=== PATIENT | female | born 1970 | race Hispanic/Latino ===

== ENCOUNTER 2017-11-01 05:59 | Observation (INO) | payer MEDICARE, BC ==
[2017-10-31 09:13] LABS: BASOPHILS % 0.5 % (0.0-1.0); EOSINOPHILS # (AUTO) 0.3 (0.0-0.4); EOSINOPHILS % 3.4 % (0.0-6.0); HEMATOCRIT 41.4 % (34.2-44.1); HEMOGLOBIN 13.7 g/dL (12.0-16.0); LYMPHOCYTES # (AUTO) 3.3 (1.0-3.2); LYMPHOCYTES % 37.4 % (18.0-39.1); MEAN CORPUSCULAR HEMOGLOBIN 30.8 pg (28-32); MEAN CORPUSCULAR HGB CONC 33.1 g/dL (31-35); MONOCYTES # (AUTO) 0.7 (0.2-0.8); MONOCYTES % 7.9 % (4.4-11.3); NEUTROPHILS # (AUTO) 4.4 (2.1-6.9); NEUTROPHILS % 50.5 % (38.7-80.0); PLATELET COUNT 252 x10e3/uL (140-360); RED BLOOD COUNT 4.45 x10e6/uL (3.6-5.1); RED CELL DISTRIBUTION WIDTH 12.3 % (11.7-14.4)
[2017-10-31 09:28] LABS: ANION GAP 10.8 mmol/L (8-16); BLOOD UREA NITROGEN 12 mg/dL (7-26); BUN/CREATININE RATIO 17 (6-25); CALCIUM 9.1 mg/dL (8.4-10.2); CARBON DIOXIDE 26 mmol/L (22-29); CHLORIDE 106 mmol/L (98-107); EST GLOMERULAR FILTRATION RATE > 60 ML/MIN (60-); GLUCOSE 114 mg/dL (74-118); POTASSIUM 3.8 mmol/L (3.5-5.1); SODIUM 139 mmol/L (136-145)
[2017-10-31 09:34] LABS: INR 0.95; PROTHROMBIN TIME 13.1 seconds (11.9-14.5)
[2017-10-31 09:35] LABS: PARTIAL THROMBOPLASTIN TIME 30.2 seconds (23.8-35.5)
--- NOTE | 2017-10-31 09:48 | Diagnostic Imaging Report ---
PROCEDURE: X-RAY CHEST, TWO VIEWS COMPARISON: None. INDICATIONS: PREOP - CSPINE SX FINDINGS: LUNGS: No consolidations or edema. PLEURA: No effusions or pneumothorax. HEART \T\ MEDIASTINUM: The heart is within normal size-limits. BONES \T\ SOFT TISSUES: No acute findings. CONCLUSION: No acute thoracic abnormality. Scot Franklin D.O. Dictated by: Scot Franklin D.O. on 10/31/2017 at 9:56 Electronically approved by: Scot Franklin D.O. on 10/31/2017 at 9:56
[~2017-11-01] VITALS: Ht 152.4 cm; Wt 93.9 kg
[2017-11-01] VITALS (7 sets, daily range): BP systolic 135–168; BP diastolic 72–90
[2017-11-01] MEDS ORDERED: CEFAZOLIN SOD 2 GM/D5W 50ML 50 ML IV ONE (06:11)
[2017-11-01] MEDS ORDERED: BACITRACIN 50,000 UNIT VIAL ONE (07:02)
[2017-11-01] MEDS ORDERED: GELATIN SPONGE SZ 100 ONE (07:02)
[2017-11-01] MEDS ORDERED: THROMBIN FOR SOLN 5,000 UNIT VIAL ONE (07:02)
[2017-11-01] MEDS ORDERED: BUPIVACAINE HCL 0.5% INJ 30 ML VIAL INJ ONE (07:06)
[2017-11-01] MEDS ORDERED: ACETAMINOPHEN 325 MG TAB PO PRN (09:00)
[2017-11-01] MEDS ORDERED: MORPHINE SULFATE 5 MG/ML VIAL IM PRN (09:00)
[2017-11-01] MEDS ORDERED: PROMETHAZINE HCL (IM) 25 MG/ML VIAL IM PRN (09:00)
[2017-11-01] MEDS ORDERED: CEPACOL SORE THROAT LOZENGES PO PRN (09:00)
[2017-11-01] MEDS ORDERED: MAGNESIUM/ALUMINUM/SIMETHICONE 30 ML UDC PO PRN (09:00)
[2017-11-01] MEDS ORDERED: FENTANYL CITRATE/PF 100MCG/2 ML INJ ONE ×2 (09:08→19:11)
[2017-11-01] MEDS: LACTATED RINGER'S 1,000 ML IV SCH ×3 (10:22→19:51)
[2017-11-01] MEDS: OXYCODONE/ACETAMINOPHEN 5-325 1 EACH TABLET PO PRN ×2 (10:22→18:46)
[2017-11-01] MEDS: CARISOPRODOL 350 MG TAB PO PRN ×2 (10:22→18:47)
[2017-11-01] MEDS: ONDANSETRON HCL INJ 2 MG/ML VIAL IV PRN ×2 (12:29→19:05)
[2017-11-01] MEDS: CEFAZOLIN SOD 1 GM VIAL IV SCH ×2 (13:30→21:00)
[2017-11-01] MEDS: HYDROMORPHONE 2MG/ML INJ IV PRN ×2 (13:58→21:45)
[2017-11-01] MEDS ORDERED: CEFAZOLIN SOD 1 GM/NS 50ML 50 ML IV SCH (14:00)
[2017-11-01] MEDS ORDERED: IBUPROFEN 600 MG TAB PO PRN (14:30)
--- NOTE | 2017-11-01 15:34 | Operative Report ---
DATE OF PROCEDURE: November 01, 2017 PREOPERATIVE DIAGNOSIS: C5-6 disk herniation and spondylosis. POSTOPERATIVE DIAGNOSIS: C5-6 disk herniation and spondylosis. PROCEDURES 1. C5-6 anterior cervical diskectomy and microsurgical osteophyte resection and allograft fusion, 33350. 2. Preparation of MTF corticocancellous allograft, 35365. 3. C5-6 anterior cervical plating with Synthes ZPN plate, 68067. ANESTHESIA: General. INDICATIONS: The patient is a woman who presents with C5-6 disk herniation and spondylosis and was taken to the operating room for anterior cervical decompression and fusion. PROCEDURE: After induction of general anesthesia, the patient was placed on the operating table in supine position. The right side of the neck was prepped and draped in sterile fashion. The fluoroscopic C-arm was positioned in cross-table lateral orientation. A small transverse incision was created on the right side of the neck superimposed on the C5-6 disk space as determined by fluoroscopy. The platysma was divided in line with the incision. A subplatysmal dissection was carried out. An avascular plane of dissection was developed medially to the sternocleidomastoid muscle and was followed medial to the carotid sheath to the anterior border of the cervical spine. The deep cervical fascia was opened. The esophagus was retracted to the left. The attachments of the longus colli muscles to the anterolateral aspects of vertebral bodies of C5 and C6 were divided. The anterior longitudinal ligament was resected. Holden posts were inserted into the C5 and C6 vertebral bodies and the Holden distractor was used to distract the disk space. The anterior annulus of the disk was incised with a #11 blade and the contents of the C5-6 disk were thoroughly evacuated with angled curettes and pituitary rongeurs. As the posterior aspect of the disk was reached, hemorrhagic disk material came into view with a brownish purplish stain. This explained the hyperintense appearance of the herniated disk on MRI images. The herniated disk material was completely resected. The posterior osteophytes were drilled with a 2 mm cutting keith until they were completely removed. The residual posterior annulus of the disk and posterior longitudinal ligament were resected completely. The dura was fully exposed and decompressed. The medial aspects of the uncinate processes were resected bilaterally to expose the origins of the C6 nerve roots bilaterally. The endplates were prepared for fusion. The disk space was sized and found to be 7 mm in height. A piece of MTF corticocancellous allograft measuring 7 mm in thickness was selected and prepared in saline and loaded onto a Synthes ZPN plate. The construct was inserted into the disk space under lateral fluoroscopic guidance and tamped in place until the anterior margin of the plate was flush with the anterior margin of the vertebral bodies. The plate was then screwed to the endplates of C5 and C6 with 2 pairs of 14 mm screws. All screws were locked. An excellent construct was obtained. The wound was copiously irrigated with bacitracin solution. Meticulous hemostasis was secured. The platysma was closed with 3-0 Vicryl sutures. The skin was closed with 4-0 Monocryl sutures in subcuticular fashion. Steri-Strips and a dressing were applied. The patient was awakened, extubated, and taken to postanesthesia care unit in stable condition. No intraoperative complications were encountered. Estimated blood loss was 20 mL. Job#: [id number] ANDRÉS
[2017-11-01] MEDS ORDERED: ROCURONIUM BROMIDE 10 MG/ML 5ML VIAL ONE (17:51)
[2017-11-01] MEDS ORDERED: LIDOCAINE HCL 2% LOCAL INJ 5 ML SDV VIAL INJ ONE (17:51)
[2017-11-01] MEDS ORDERED: SEVOFLURANE INHAL SOLN 250 ML PEN BTL ONE (17:51)
[2017-11-01] MEDS ORDERED: DEXAMETHASONE SOD PHOS INJ 4 MG/ML VIAL ONE (17:51)
[2017-11-01] MEDS ORDERED: PROPOFOL IV EMULSION 10 MG/ML 20 ML VIAL ONE (17:51)
[2017-11-01] MEDS ORDERED: NEOSTIGMINE 5 MG/5ML SYR ONE (17:51)
[2017-11-01] MEDS ORDERED: ONDANSETRON HCL INJ 2 MG/ML VIAL ONE (17:51)
[2017-11-01] MEDS ORDERED: GLYCOPYRROLATE INJ 1MG/ 5 ML SYR ONE (17:51)
[2017-11-01] MEDS ORDERED: MORPHINE SULFATE INJ 10 MG/ML ONE (19:11)
[2017-11-01] MEDS ORDERED: MIDAZOLAM HCL 2 MG/2 ML VIAL ONE (19:11)
[2017-11-01] MEDS: DIPHENHYDRAMINE HCL INJ 50 MG/ML VIAL IV PRN (23:13)
[2017-11-02] VITALS: BP 70/81
[2017-11-02 04:00] VITALS: BP 127/58
[2017-11-02] MEDS: CEFAZOLIN SOD 1 GM VIAL IV SCH (05:18)
--- NOTE | 2017-11-02 07:00 | Diagnostic Imaging Report ---
C-SPINE 2 VIEWS AP LATERAL HISTORY: Status post surgery COMPARISON: None FINDINGS: Bones: No displaced fracture. Osseous alignment is within normal limits. Patient is status post anterior fusion of C5-6 vertebral bodies with intervertebral disc spacer in place Joints: The joint spaces are well-maintained. Soft tissues: The soft tissues appear unremarkable. IMPRESSION: No acute radiographic abnormality. Postsurgical changes at C5-6 level Signed by: Dr. Michael Thompson M.D. on 11/02/2017 6:57 AM
[2017-11-02] MEDS: HYDROMORPHONE 2MG/ML INJ IV PRN (07:37)
[2017-11-02] MEDS: ONDANSETRON HCL INJ 2 MG/ML VIAL IV PRN (07:37)
[2017-11-02] MEDS: DIPHENHYDRAMINE HCL INJ 50 MG/ML VIAL IV PRN (07:37)
[2017-11-02] MEDS ORDERED: ULTRAM 50MG50 MG PO (07:53)
[2017-11-02] MEDS ORDERED: SOMA350 MG PO (07:57)
[2017-11-02 08:15] VITALS: BP 162/79
[2017-11-02] MEDS: LACTATED RINGER'S 1,000 ML IV SCH (09:58)
[2017-11-02 11:51] VITALS: BP 157/77
[2017-11-02 16:00] VITALS: BP 154/70
== END 2017-11-02 16:48 | disposition home or self-care (01) ==
LOC: OR 05:59 → IMCU 09:28
PROVIDERS: ADMIT Neurological Surgery; ATTEND Neurological Surgery
DX: M50.122 Cervical disc disorder at C5-C6 level with radiculopathy (principal); M47.22 Other spondylosis with radiculopathy, cervical region; G43.809 Other migraine, not intractable, without status migrainosus; Z85.41 Personal history of malignant neoplasm of cervix uteri
CPT/HCPCS: 20931; 22551; 22845; 36415; 71020; 72040; 77003; 80048; 85025; 85610; 85730; 86850; 86900; 88304; 93005; C1713; G0378 ×2; J0690 ×2; J1100; J1170 ×2; J1200 ×2; J2001; J2250; J2270; J2405 ×2; J2550; J7120